=== PATIENT | female | born 1975 | race Asian ===

== ENCOUNTER 2020-03-09 10:02 | Outpatient (CLI) | payer BC ==
--- NOTE | 2020-03-09 12:28 | Diagnostic Imaging Report ---
Indication: Cough Technique: 2 views of the chest Comparison: None Findings: There is questionable patchy reticular infiltrate at the right lower lung periphery. Lungs pleural spaces are otherwise clear. The heart size is normal. The bones are unremarkable. Impression: Bilateral patchy reticular right lateral basilar infiltrate, could represent early pneumonia if real. Correlate with clinical findings
== END 2020-03-09 12:00 | disposition home or self-care (01) ==
LOC: RAD 10:02
DX: R05 Cough (principal)
CPT/HCPCS: 71046

== ENCOUNTER → 2020-04-05 | Outpatient (CLI) | payer BC ==
--- NOTE | 2020-04-05 16:51 | Diagnostic Imaging Report ---
Clinical Indication: Hemoptysis, chest pain Technique: Spiral acquisitions obtained through the chest. No IV contrast utilized, reason not stated. Multiplanar reconstructions generated. Total dose length product 131 mGycm. CTDIvol(s) 3 mGy. Dose reduction achieved using automated exposure control Comparison: none. Reference made to chest radiograph dated 03/09/2020 Findings: The lungs pleural spaces are clear. No infiltrates, effusions, masses, or nodules are demonstrated. The trachea and bronchi are unremarkable. Normal heart size. No pericardial effusion. No mediastinal or hilar mass or adenopathy. The esophagus is unremarkable. The thyroid is unremarkable. The bones are unremarkable. Included upper abdominal anatomy is unremarkable. Impression: Negative. No findings to explain stated clinical history of hemoptysis demonstrated. The CT scanner at [facility] is accredited by the [employer] and the scans are performed using protocols designed to limit radiation exposure to as low as reasonably achievable to attain images of sufficient resolution adequate for diagnostic evaluation.
== END | disposition home or self-care (01) ==
LOC: CAT 13:41
DX: R07.9 Chest pain, unspecified (principal); R04.2 Hemoptysis
CPT/HCPCS: 71250